=== PATIENT | female | born 1975 ===

== ENCOUNTER 2017-11-21 10:20 | Emergency (ER) | payer OTHER ==
[2017-11-21 10:47] VITALS: TEMP 98; O2SAT 98
[2017-11-21 11:56] VITALS: BP 146/71; PULSE 90; RESP 18
[2017-11-21] MEDS ORDERED: Albuterol-Ipratrop 3 mg / 0.5 (3 ml) UD INH STA (12:18)
--- NOTE | 2017-11-21 12:21 | ED PDOC ---
HPI: General Adult Time Seen by Provider: 11/21/17 12:15 Chief Complaint (Nursing): Flu-like Symptoms Chief Complaint (Provider): Cough, nasal congestion, sore throat History Per: Patient History/Exam Limitations: no limitations Onset/Duration Of Symptoms: Days (3) Additional Complaint(s): Patient is a 42 y/o female with no significant past medical history presenting to the emergency department for a cough, nasal congestion, and a sore throat ongoing for three days. Notes taking Tylenol with no significant relief. Denies vomiting, diarrhea, fever, chills, known sick contacts, or any other complaints. PCP: none provided Past Medical History Reviewed: Historical Data, Nursing Documentation, Vital Signs Vital Signs: Last Vital Signs Temp 98 F 11/21/17 11:53 Pulse 90 11/21/17 11:53 Resp 18 11/21/17 11:53 BP 146/71 11/21/17 11:53 Pulse Ox 98 11/22/17 00:37 - Medical History PMH: No Chronic Diseases - Family History Family History: States: No Known Family Hx - Social History Current smoker - smoking cessation education provided: No Ex-Smoker (has not smoked in the last 12 months): No Alcohol: None Drugs: Denies - Home Medications Home Medications: Ambulatory Orders Medication Instructions Recorded Albuterol HFA [Ventolin HFA 90 2 puff IH [id number] PRN #1 inhaler 11/21/17 mcg/actuation (8 g)] Prednisone [Deltasone] 2 tab PO DAILY #10 tablet 11/21/17 Promethazine/Codeine 5 ml PO Q12 PRN #100 ml 11/21/17 [Codeine/Promethazine 10 MG/5 Ml-6.25 MG/5 Ml] - Allergies Allergies/Adverse Reactions: Allergies Allergy/AdvReac Type Severity Reaction Status Date / Time No Known Allergies Allergy Verified 11/21/17 11:53 Review of Systems ROS Statement: Except As Marked, All Systems Reviewed And Found Negative Constitutional: Negative for: Fever, Chills ENT: Positive for: Nose Congestion, Throat Pain Respiratory: Positive for: Cough Gastrointestinal: Negative for: Vomiting, Diarrhea Physical Exam - Reviewed Nursing Documentation Reviewed: Yes Vital Signs Reviewed: Yes - Physical Exam Appears: Positive for: Non-toxic, No Acute Distress Head Exam: Positive for: ATRAUMATIC Skin: Positive for: Normal Color, Warm, Dry Eye Exam: Positive for: Normal appearance Neck: Positive for: Normal, Painless ROM, Supple Cardiovascular/Chest: Positive for: Regular Rate, Rhythm. Negative for: Murmur Respiratory: Positive for: Rhonchi (mild, right-sided), Other (bronchospasm cough noted). Negative for: Accessory Muscle Use, Respiratory Distress Extremity: Positive for: Normal ROM. Negative for: Pedal Edema Neurologic/Psych: Positive for: Alert, Oriented (x3) - ECG O2 Sat by Pulse Oximetry: 98 (RA) Pulse Ox Interpretation: Normal - Progress ED Course And Treament: patient improved in ED. Medical Decision Making Medical Decision Making: Time: 12:19 Initial impression: Flu-like symptoms Initial plan: Albuterol/Ipratropium 3 mL INH Peak flow assessment pre and post treatment Scribe Attestation: Documented by Amber Catherine, acting as a scribe for VANESSA Taylor. Provider Scribe Attestation: All medical record entries made by the Scribe were at my direction and personally dictated by me. I have reviewed the chart and agree that the record accurately reflects my personal performance of the history, physical exam, medical decision making, and the department course for this patient. I have also personally directed, reviewed, and agree with the discharge instructions and disposition. Disposition - Clinical Impression Clinical Impression: Viral illness - Patient ED Disposition Is Patient to be Admitted: No - Disposition Referrals: [facility] [Outside] Disposition: Routine/Home Disposition Time: 13:40 Condition: FAIR Prescriptions: Albuterol HFA [Ventolin HFA 90 mcg/actuation (8 g)] 2 puff IH [id number] PRN #1 inhaler PRN Reason: Cough Prednisone [Deltasone] 2 tab PO DAILY #10 tablet Promethazine/Codeine [Codeine/Promethazine 10 MG/5 Ml-6.25 MG/5 Ml] 5 ml PO Q12 PRN #100 ml PRN Reason: Cough Instructions: Acute Bronchitis (ED) Forms: [employer] Connect (Georgian), [facility] ED School/Work Excuse Print Language: UKRAINIAN
[2017-11-21] MEDS ORDERED: Albuterol-Ipratrop 3 mg / 0.5 (3 ml) UD ONE ×2 (12:33→12:34)
== END 2017-11-21 13:49 | disposition home or self-care (01) ==
LOC: H.ER 10:20
DX: B34.9 Viral infection, unspecified (principal)

== ENCOUNTER 2018-05-11 17:25 | Emergency (ER) | payer OTHER ==
[2018-05-11 17:43] VITALS: O2SAT 99
[2018-05-11] MEDS ORDERED: Sodium Chloride 0.9% 1,000 ML IV STA (18:35)
[2018-05-11] MEDS ORDERED: cefTRIAXone 1,000 MG in PED IV SYRINGE 1 SYR IVPB STA (19:35)
--- NOTE | 2018-05-11 19:36 | ED PDOC ---
HPI: Fever Fever Onset Was: 05/04/18 Symptoms Associated With Fever: denies: Vomiting, Diarrhea Additional Comments: 42 year old female presents to the ED with complaints of fever associated with chills, headache, and body ache, onset one week ago. Patient additionally reports of dysuria two weeks ago but states she does not have it now. Otherwise: (-) decreased alertness, (-) decreased activity, (-) SOB, (-) apparent pain, (-) decreased oral intake, (-) decreased urine output, ( -) rash, (-) vomiting, (-) diarrhea, (-) travel. Past Medical History Reviewed: Historical Data, Nursing Documentation, Vital Signs Vital Signs: Last Vital Signs Temp 100.8 F H 05/11/18 17:39 Pulse 110 H 05/11/18 17:39 Resp 22 05/11/18 17:39 BP 137/75 05/11/18 17:39 Pulse Ox 99 05/11/18 19:41 - Medical History PMH: No Chronic Diseases - Surgical History Surgical History: No Surg Hx - Family History Family History: States: Unknown Family Hx - Social History Current smoker - smoking cessation education provided: No Alcohol: None Drugs: Denies - Home Medications Home Medications: Ambulatory Orders Medication Instructions Recorded Albuterol HFA [Ventolin HFA 90 2 puff IH [id number] PRN #1 inhaler 11/21/17 mcg/actuation (8 g)] Prednisone [Deltasone] 2 tab PO DAILY #10 tablet 11/21/17 Promethazine/Codeine 5 ml PO Q12 PRN #100 ml 11/21/17 [Codeine/Promethazine 10 MG/5 Ml-6.25 MG/5 Ml] - Allergies Allergies/Adverse Reactions: Allergies Allergy/AdvReac Type Severity Reaction Status Date / Time No Known Allergies Allergy Verified 05/11/18 17:39 Review of Systems ROS Statement: Except As Marked, All Systems Reviewed And Found Negative Constitutional: Positive for: Fever, Chills, Other (myalgia) Neurological: Positive for: Headache Physical Exam - Reviewed Nursing Documentation Reviewed: Yes Vital Signs Reviewed: Yes - Physical Exam Comments: GENERAL APPEARANCE: Patient is awake, alert, not toxic appearing, in no acute distress. SKIN: Warm, dry; (-) cyanosis; (-) petechiae, (-) rash. EYES: (-) conjunctival pallor, (-) icterus. ENMT: TMs (-) erythema. Pharynx: (-) tonsillar erythema, (-) tonsillar exudate. Airway patent, (-) stridor. Mucous membranes moist. NECK: (-) stiffness, (-) meningismus, (-) lymphadenopathy. CHEST AND RESPIRATORY: (-) retractions, (-) rales, (-) rhonchi, (-) wheezes; breath equal bilaterally. HEART AND CARDIOVASCULAR: (-) irregularity; (-) murmur, (-) gallop. ABDOMEN AND GI: Soft; (-) tenderness; (-) distention, (-) guarding; (-) palpable mass. EXTREMITIES: (-) deformity; distal pulses are present. NEURO AND PSYCH: Mental status as above; interacts appropriately for age. Strength and tone good. - Laboratory Results Result Diagrams: 05/11/18 19:29 05/11/18 19:29 - ECG O2 Sat by Pulse Oximetry: 99 (RA) Pulse Ox Interpretation: Normal Medical Decision Making Medical Decision Making: Time: 1833 Plan: -- ED Urine -- ED Urine Dipstick -- CXR Two Views -- Tylenol 975 mg PO -- Zofran Inj 4 mg IVP -- Toradol 30 mg IVP -- IV Insertion Time: 1934 Plan: -- Urinalysis -- Influenza A B -- Finger Stick -- Urine Culture -- Blood Culture -- CBC with differentials -- Rocephin 1000 mg Ped IV Syringe 1 syr IVPB -- Venous Blood Gas UA (+) UTI. FS 244 Rocephin 1 g IV ordered. Labs reviewed Case endorsed to VANESSA Leonardo at 1999 pending re-evaluation, repeat FS and disposition. Scribe Attestation: Documented by Emily Linda, acting as a scribe for Bernadine Almazan PA-C. Provider Scribe Attestation: All medical record entries made by the Scribe were at my direction and personally dictated by me. I have reviewed the chart and agree that the record accurately reflects my personal performance of the history, physical exam, medical decision making, and the department course for this patient. I have also personally directed, reviewed, and agree with the discharge instructions and disposition. Disposition - Clinical Impression Clinical Impression: Fever, UTI (urinary tract infection), Diabetes - Patient ED Disposition Is Patient to be Admitted: Transfer of Care - Disposition Disposition: Transfer of Care Disposition Time: 20:00 Condition: STABLE Forms: [email or web address] Connect (Cambodian) - PA / CARE COORDINATION MANAGER / Resident Statement MD/DO has reviewed & agrees with the documentation as recorded.
[2018-05-11 19:39] LABS: BASO % 0.4 % (0.0-2.0); EOS % 0.1 % (0.0-4.0); HEMOGLOBIN 12.7 g/dL (12.0-16.0); LYMPH # 1.1 K/uL (1.0-4.3); LYMPH % 12.2 % (20.0-40.0); MEAN CELL VOLUME 85.6 fl (81.0-99.0); MEAN CORPUSCULAR HEMOGLOBIN 29.6 pg (27.0-31.0); MEAN CORPUSCULAR HGB CONC 34.6 g/dL (33.0-37.0); MONO # 0.7 K/uL (0.0-0.8); NEUT # 7.3 K/uL (1.8-7.0); NEUT % 79.3 % (50.0-75.0); RBC 4.3 Mil/uL (3.80-5.20); RED CELL DISTRIBUTION WIDTH 13.7 % (11.5-14.5); WHITE BLOOD COUNT 9.2 K/uL (4.8-10.8)
[2018-05-11 19:42] LABS: VENOUS BLOOD GAS BASE EXCESS 0.1 mmol/L (0.0-2.0); VENOUS BLOOD GAS PCO2 35 mmHg (40-60); VENOUS BLOOD GAS PO2 34 mm/Hg (30-55); VENOUS BLOOD PH 7.44 (7.32-7.43)
[2018-05-11 19:46] LABS: ALT/SGPT 57 U/L (9-52); AST/SGOT 65 U/L (14-36); BLOOD UREA NITROGEN 12 mg/dl (7-17); CALCIUM 8.8 mg/dL (8.4-10.2); GFR AFRICAN-AMERICAN > 60; GFR NON-AFRICAN AMERICAN > 60
[2018-05-11] MEDS ORDERED: cefTRIAXone (Rocephin) 1 gm Inj ONE (19:50)
[2018-05-11 20:08] LABS: SQUAMOUS EPITHIAL 4 /hpf (0-5); URINE BACTERIA RARE (<OCC); URINE BILIRUBIN NEGATIVE (NEGATIVE); URINE BLOOD MODERATE (NEGATIVE); URINE CLARITY CLOUDY (Clear); URINE COLOR YELLOW (YELLOW); URINE GLUCOSE (UA) >=500 mg/dL (Normal); URINE LEUKOCYTE ESTERASE MOD Leu/uL (Negative); URINE PROTEIN 30 mg/dL (NEGATIVE)
[2018-05-11 21:56] VITALS: PULSE 79; RESP 18; TEMP 98.6
[2018-05-11 22:16] VITALS: BP 101/65
--- NOTE | 2018-05-11 22:26 | ED PDOC ---
- Laboratory Results Result Diagrams: 05/11/18 19:29 05/11/18 19:29 - ECG O2 Sat by Pulse Oximetry: 99 - Progress ED Course And Treament: Case endorsed to software writer from [employer] pending re-eval On re-eval patient states she is feeling better. Patient/family educated on findings, discharged with rx Metformin, Macrobid, Ibuprofen Advised fluids. Diet/lifestyle modification Follow up PMD 2-3 days. Return precautions given Disposition - Clinical Impression Clinical Impression: Fever, UTI (urinary tract infection), Diabetes - POA Present On Arrival: None - Disposition Referrals: [facility] [Outside] Disposition: Routine/Home Disposition Time: 22:27 Condition: IMPROVED Prescriptions: Ibuprofen [Motrin Tab] 1 tab PO Q6 PRN #20 tab PRN Reason: Fever >100.4 F Metformin HCl [Glucophage] 500 mg PO BID #30 tab Nitrofurantoin Macrocrystals [Macrobid] 100 mg PO BID #14 cap Instructions: Urinary Tract Infections in Adults, Diabetes and Diet, Hyperglycemia, Adult Print Language: ROMANSH
--- NOTE | 2018-05-12 07:34 | RAD ---
HISTORY: fever COMPARISON: No prior. TECHNIQUE: Chest PA and lateral FINDINGS: LUNGS: Borderline patchy density left base may reflect atelectasis or early infiltrate. Remaining lung hightower are otherwise clear bilaterally. PLEURA: No significant pleural effusion identified. No pneumothorax apparent. CARDIOVASCULAR: Normal. OSSEOUS STRUCTURES: No significant abnormalities. VISUALIZED UPPER ABDOMEN: Normal. OTHER FINDINGS: None. IMPRESSION: Borderline patchy airspace disease left base. Otherwise unremarkable chest radiographs.
== END 2018-05-11 22:55 | disposition home or self-care (01) ==
LOC: H.ER 17:25
DX: N39.0 Urinary tract infection, site not specified (principal); E11.9 Type 2 diabetes mellitus without complications
CPT/HCPCS: 71046; 80053; 81003; 81025; 82803; 82948; 85025; 87040; 87086; 87181; 87804; 96365; 96375; 99285; J0696; J1885; J2405; J7030

== ENCOUNTER 2018-07-02 22:26 | Emergency (ER) | payer OTHER ==
[2018-07-02 22:30] VITALS: BP 136/86; PULSE 85; RESP 16; TEMP 98.6; O2SAT 99
[2018-07-02] MEDS ORDERED: Bacitracin 500 Units/gm Oint Foilpak UD TOP STA (22:35)
[2018-07-02] MEDS ORDERED: Tdap Vaccine 0.5 ml Vial (10-64 yrs) IM ONE ×2 (22:35→23:05)
--- NOTE | 2018-07-02 22:46 | ED PDOC ---
HPI: General Adult Time Seen by Provider: 07/02/18 22:27 Chief Complaint (Nursing): ENT Problem History Per: Patient, Family (Deanna daughter who served as photostatic copy maker; pt. prefers her daughter over video photostatic copy maker) Additional Complaint(s): Pt. states earlier today she was walking her dogs when she tripped over an uneven curb falling forward striking her face and her R knee onto the ground. As per her daughter who witnessed the event pt. did not lose consciousness. Has been bleeding intermittently from the R nostril. Denies LOC, extremity pain including R knee, chest pain, abd pain, N/V, neck pain, anticoagulant use. Past Medical History Reviewed: Historical Data, Nursing Documentation, Vital Signs Vital Signs: Last Vital Signs Temp 98.6 F 07/02/18 22:28 Pulse 85 07/02/18 22:28 Resp 16 07/02/18 22:28 BP 136/86 07/02/18 22:28 Pulse Ox 99 07/02/18 22:54 - Medical History PMH: Diabetes Denies: Chronic Kidney Disease - Surgical History Surgical History: No Surg Hx - Family History Family History: States: No Known Family Hx - Home Medications Home Medications: Ambulatory Orders Medication Instructions Recorded Albuterol HFA [Ventolin HFA 90 2 puff IH [id number] PRN #1 inhaler 11/21/17 mcg/actuation (8 g)] Prednisone [Deltasone] 2 tab PO DAILY #10 tablet 11/21/17 Promethazine/Codeine 5 ml PO Q12 PRN #100 ml 11/21/17 [Codeine/Promethazine 10 MG/5 Ml-6.25 MG/5 Ml] Ibuprofen [Motrin Tab] 1 tab PO Q6 PRN #20 tab 05/11/18 Metformin HCl [Glucophage] 500 mg PO BID #30 tab 05/11/18 Nitrofurantoin Macrocrystals 100 mg PO BID #14 cap 05/11/18 [Macrobid] Amoxicillin/Clavulanate [Augmentin 1 tab PO BID #20 tab 07/02/18 500 MG-125 MG] Pseudoephedrine HCl [Sudafed] 1 - 2 mg PO Q8 PRN #10 tablet 07/02/18 - Allergies Allergies/Adverse Reactions: Allergies Allergy/AdvReac Type Severity Reaction Status Date / Time No Known Allergies Allergy Verified 05/11/18 17:39 Review of Systems ROS Statement: Except As Marked, All Systems Reviewed And Found Negative Physical Exam - Physical Exam Appears: Positive for: Well, Non-toxic, No Acute Distress Head Exam: Negative for: ATRAUMATIC, NORMAL INSPECTION, NORMOCEPHALIC Skin: Positive for: Normal Color, Warm. Negative for: Rash Eye Exam: Positive for: Normal appearance, EOMI, PERRL, Other (no hyphema). Negative for: Periorbital swelling, Periorbital tenderness ENT: Positive for: TM Is/Are (no hemotympanum b/l), Other (no bleeding in pharynx; moderate tenderness and swelling to the nose with deformity and superficial abrasions to nasal bridge; blood noted in R nostril; no septal hematoma b/l; no active bleeding to both nostrils). Negative for: Pharyngeal Erythema, Tonsillar Exudate, Tonsillar Swelling Neck: Positive for: Normal, Painless ROM Cardiovascular/Chest: Positive for: Chest Non Tender Pulses-Dorsalis Pedis (L): 2+ Pulses-Dorsalis Pedis (R): 2+ Gastrointestinal/Abdominal: Positive for: Normal Exam, Soft. Negative for: Tenderness Back: Positive for: Normal Inspection. Negative for: L CVA Tenderness, R CVA Tenderness, Vertebral Tenderness (including cervical spine) Extremity: Positive for: Other (R knee with superficial abrasions without tenderness, swelling, or deformity; FROM actively of R knee) Neurologic/Psych: Positive for: Alert, Oriented (x3), Gait (steady, unassisted) . Negative for: Aphasia, Facial Droop - ECG O2 Sat by Pulse Oximetry: 99 - Progress ED Course And Treament: CT head, maxillofacial w/o contrast, Tylenol 975mg PO, tetanus prophylaxis ordered. Abrasions cleansed and dressed by RN. Bacitracin ointment applied to abrasions by RN. CT head w/o contrast: negative CT maxillofacial w/o contrast: Acute displaced comminuted fracture of the right nasal bone with overlying soft tissue swelling. Nasal septum is kinked and rightward deviated, likely congenital or due to old chronic fracture injury. This finding is probably unlikely to represent an acute fracture injury; however, correlation with prior imaging, which may be available on-site or from outside institutions, would be helpful to assess for stability, if also clinically indicated. Trace blood and frothy secretions at the right nasal cavity and nasopharyngeal lumen, likely from the right nasal bone fracture Pt. and daughter informed of results. Advised to f/u with [facility] or Dr. Byrd (ENT ) for further evaluation. Nasal bleeding stopped spontaneously while in ED. Disposition - Clinical Impression Clinical Impression: Head injury, Nasal fracture - Patient ED Disposition Is Patient to be Admitted: No - Disposition Referrals: [facility] [Outside] Cj Byrd MD [Staff Provider] - [facility] [Outside] Disposition: Routine/Home Disposition Time: 23:30 Condition: STABLE Additional Instructions: FOLLOW UP EAR NOSE AND THROAT DOCTOR OR GO TO [facility] WITHOUT FAIL FOR FURTHER EVALUATION WITHOUT FAIL NEVA LEI, thank you for letting us take care of you today. Your provider was Yuriy Miller MD and you were treated for FALL,NOSE INJURY. The emergency medical care you received today was directed at your acute symptoms. If you were prescribed any medication, please fill it and take as directed. It may take several days for your symptoms to resolve. Return to the Emergency Department if your symptoms worsen, do not improve, or if you have any other problems. Please contact your doctor or call one of the physicians/clinics you have been referred to that are listed on the Patient Visit Information form that is included in your discharge packet. Bring any paperwork you were given at discharge with you along with any medications you are taking to your follow up visit. Our treatment cannot replace ongoing medical care by a primary care provider outside of the emergency department. Thank you for allowing the [facility] team to be part of your care today. If you had an X-Ray or CT scan: A Radiologist will review the ED reading if any change in treatment is needed we will contact you. If you had a blood, urine, or wound culture: It will take several days for the results, if any change in treatment is needed we will contact you. If you had an STI test: It will take 48 hours for the results. Please call after 1 week if you have not heard back. Prescriptions: Amoxicillin/Clavulanate [Augmentin 500 MG-125 MG] 1 tab PO BID #20 tab Pseudoephedrine HCl [Sudafed] 1 - 2 mg PO Q8 PRN #10 tablet PRN Reason: Nasal Congestion Instructions: Minor Head Injury (DC), Nose Fracture Forms: [employer] (Vietnamese) Print Language: [email or web address]
[2018-07-02] MEDS ORDERED: Bacitracin 500 Units/gm Oint Foilpak UD ONE (23:05)
--- NOTE | 2018-07-03 10:20 | CT ---
Date of service: 07/02/2018 PROCEDURE: CT HEAD WITHOUT CONTRAST. HISTORY: trauma COMPARISON: None available. TECHNIQUE: Axial computed tomography images were obtained through the head/brain without intravenous contrast. Radiation dose: Total exam DLP = 776.09 mGy-cm. This CT exam was performed using one or more of the following dose reduction techniques: Automated exposure control, adjustment of the mA and/or kV according to patient size, and/or use of iterative reconstruction technique. FINDINGS: HEMORRHAGE: No intracranial hemorrhage. BRAIN: Normal stearns-white matter differentiation and density are appreciated throughout the cerebrum and cerebellum with the brainstem appearing unremarkable as well. There is no mass effect. There is no suspicious extra-axial fluid collection and the midline brain anatomy appears diffusely unremarkable. VENTRICLES: Unremarkable. No hydrocephalus. CALVARIUM: No destructive bony lesion or displaced fracture identified including through the skullbase. PARANASAL SINUSES: Unremarkable as visualized. No significant inflammatory changes. MASTOID AIR CELLS: Unremarkable as visualized. No inflammatory changes. OTHER FINDINGS: None. IMPRESSION: Unremarkable noncontrast head CT. Concordant preliminary report from [facility], 07/02/2018.
--- NOTE | 2018-07-03 10:28 | CT ---
Date of service: 07/02/2018 PROCEDURE: CT MAXILLOFACIAL BONES WITHOUT CONTRAST HISTORY: trauma COMPARISON: None available. TECHNIQUE: Contiguous axial CT images of the maxillofacial bones were obtained. Coronal and sagittal reformats were generated. Radiation dose: Total exam DLP = 730.88 mGy-cm. This CT exam was performed using one or more of the following dose reduction techniques: Automated exposure control, adjustment of the mA and/or kV according to patient size, and/or use of iterative reconstruction technique. FINDINGS: NASAL BONES: Mildly comminuted impacted fracture of the right frontal nasal bone component is appreciated with borderline diffuse nasal soft tissue edema evident. There is questionable diastases of the left nasofrontal suture. The maxillary component of the nasal bones appears intact. Note is made of rightward bony nasal septal deviation likely on a chronic basis as no fracture of the bony septum is identified. ORBITS: Unremarkable. PARANASAL SINUSES/ MASTOIDS: Limited inferior posterior right ethmoid sinusitis as well as of the right maxillary sinus with remaining perineal sinuses clear. MAXILLA: Unremarkable. MANDIBLE/ TEMPOROMANDIBULAR JOINTS: Unremarkable. SKULL BASE: Unremarkable. TEMPORAL BONES: Middle ears and mastoid grossly unremarkable. OTHER FINDINGS: None. IMPRESSION: Minimally comminuted right nasal bone fractures identified with mild diffuse nasal soft tissue edema present. No additional fracture throughout the facial bones as discussed above. Limited right ethmoid and maxillary sinus disease appreciated. Concordant preliminary report from [facility], 07/02/2018.
== END 2018-07-03 00:06 | disposition home or self-care (01) ==
LOC: H.ER 22:26
DX: S02.2XXA Fracture of nasal bones, initial encounter for closed fracture (principal); S09.90XA Unspecified injury of head, initial encounter; E11.9 Type 2 diabetes mellitus without complications; J32.0 Chronic maxillary sinusitis; W01.0XXA Fall on same level from slipping, tripping and stumbling without subsequent striking against object, initial encounter

== ENCOUNTER 2018-08-18 23:15 | Emergency (ER) | payer SELFPAY ==
[2018-08-19] MEDS ORDERED: Sodium Chloride 0.9% 1,000 ML IV STA (00:26)
[2018-08-19 01:15] LABS: VENOUS BLOOD GAS BASE EXCESS -0.4 mmol/L (0.0-2.0); VENOUS BLOOD GAS PCO2 33 mmHg (40-60); VENOUS BLOOD GAS PO2 58 mm/Hg (30-55); VENOUS BLOOD PH 7.45 (7.32-7.43)
[2018-08-19 01:25] LABS: BASO % 0.3 % (0.0-2.0); BLOOD UREA NITROGEN 10 mg/dl (7-17); EOS % 0.2 % (0.0-4.0); GFR NON-AFRICAN AMERICAN > 60; HEMOGLOBIN 12.7 g/dL (12.0-16.0); LYMPH # 1.6 K/uL (1.0-4.3); LYMPH % 14.1 % (20.0-40.0); MEAN CELL VOLUME 86.3 fl (81.0-99.0); MEAN CORPUSCULAR HEMOGLOBIN 28.8 pg (27.0-31.0); MEAN CORPUSCULAR HGB CONC 33.4 g/dL (33.0-37.0); MEAN PLATELET VOLUME 8.6 fl (7.2-11.7); MONO # 1.2 K/uL (0.0-0.8); MONO % 10.3 % (0.0-10.0); NEUT # 8.4 K/uL (1.8-7.0); NEUT % 75.1 % (50.0-75.0); RBC 4.41 Mil/uL (3.80-5.20); RED CELL DISTRIBUTION WIDTH 13.5 % (11.5-14.5); WHITE BLOOD COUNT 11.3 K/uL (4.8-10.8)
--- NOTE | 2018-08-19 01:30 | ED PDOC ---
HPI: General Adult Time Seen by Provider: 08/18/18 23:42 Chief Complaint (Nursing): Abdominal Pain Chief Complaint (Provider): fever, chills and body aches History Per: Patient History/Exam Limitations: no limitations Onset/Duration Of Symptoms: Days (x1 month), Intermittent Episodes Current Symptoms Are (Timing): Still Present Additional Complaint(s): Suzanne Valles is a 42 year old female, with a past medical history of diabetes, who presents to the emergency department for evaluation of an on and off fever, body aches and chills onset for the past month. Patient also reports having some nausea and a throbbing headache today. Patient felt more weak than normal prompting ED visit. She did not take medications prior to arrival. She does report some vaginal itching but denies any vomiting, cough, neck stiffness, runny nose, sore throat or urinary symptoms. No further medical complaints. PMD: None provided. Past Medical History Reviewed: Historical Data, Nursing Documentation, Vital Signs Vital Signs: Last Vital Signs Temp 103 F H 08/19/18 00:45 Pulse 123 H 08/18/18 23:22 Resp 16 08/18/18 23:22 BP 139/89 08/18/18 23:22 Pulse Ox 97 08/18/18 23:22 - Medical History PMH: Diabetes Denies: Chronic Kidney Disease - Surgical History Surgical History: No Surg Hx - Family History Family History: States: Unknown Family Hx - Home Medications Home Medications: Ambulatory Orders Medication Instructions Recorded Albuterol HFA [Ventolin HFA 90 2 puff IH [id number] PRN #1 inhaler 11/21/17 mcg/actuation (8 g)] Prednisone [Deltasone] 2 tab PO DAILY #10 tablet 11/21/17 Promethazine/Codeine 5 ml PO Q12 PRN #100 ml 11/21/17 [Codeine/Promethazine 10 MG/5 Ml-6.25 MG/5 Ml] Ibuprofen [Motrin Tab] 1 tab PO Q6 PRN #20 tab 05/11/18 Metformin HCl [Glucophage] 500 mg PO BID #30 tab 05/11/18 Nitrofurantoin Macrocrystals 100 mg PO BID #14 cap 05/11/18 [Macrobid] Amoxicillin/Clavulanate [Augmentin 1 tab PO BID #20 tab 07/02/18 500 MG-125 MG] Pseudoephedrine HCl [Sudafed] 1 - 2 mg PO Q8 PRN #10 tablet 07/02/18 Ibuprofen [Motrin Tab] 600 mg PO Q6 #30 tab 08/19/18 - Allergies Allergies/Adverse Reactions: Allergies Allergy/AdvReac Type Severity Reaction Status Date / Time No Known Allergies Allergy Verified 05/11/18 17:39 Review of Systems ROS Statement: Except As Marked, All Systems Reviewed And Found Negative Constitutional: Positive for: Fever, Chills, Other (body aches) ENT: Negative for: Nose Discharge (runny nose), Throat Pain Respiratory: Negative for: Cough Gastrointestinal: Positive for: Nausea. Negative for: Vomiting Genitourinary Female: Positive for: Other (vaginal itching). Negative for: Dysuria, Frequency, Hematuria Physical Exam - Reviewed Nursing Documentation Reviewed: Yes Vital Signs Reviewed: Yes - Physical Exam Appears: Positive for: No Acute Distress Head Exam: Positive for: ATRAUMATIC, NORMAL INSPECTION, NORMOCEPHALIC Skin: Positive for: Normal Color, Warm, Dry Eye Exam: Positive for: Normal appearance, EOMI, PERRL ENT: Positive for: Normal ENT Inspection Neck: Positive for: Normal (No meningeal signs), Painless ROM, Supple Cardiovascular/Chest: Positive for: Tachycardia (regular rhythm) Respiratory: Positive for: Normal Breath Sounds. Negative for: Respiratory Distress Gastrointestinal/Abdominal: Positive for: Normal Exam, Soft. Negative for: Tenderness Back: Positive for: Normal Inspection. Negative for: L CVA Tenderness, R CVA Tenderness, Vertebral Tenderness Extremity: Positive for: Normal ROM (upper and lower extremities). Negative for: Deformity, Swelling Neurologic/Psych: Positive for: Alert, Oriented, Gait (steady) - Laboratory Results Result Diagrams: 08/19/18 01:08 08/19/18 01:08 - ECG O2 Sat by Pulse Oximetry: 97 (RA) Pulse Ox Interpretation: Normal Medical Decision Making Medical Decision Making: Time: 23:42 A/P: 42 y/o female presenting with fever, body aches, and chills. Otherwise patient is well appearing. Symptoms most likely viral. Unlikely [employer] infection or other case of bacterial infection. Initial Plan: --VBG --BMP --Urine --Urine dipstick --CBC w/ differential --Sodium Chloride 1,000 ml IV 1,000 mls/hr --Toradol 30 mg IVP --Tylenol 325mg tab 650 mg PO --Influenza A B --Urinalysis --Reevaluation 03:15 Upon provider reevaluation patient is feeling better, is medically stable, and requires no further treatment in the ED at this time. Patient will be discharged home. Counseling was provided and all questions were answered regarding diagnosis*. There is agreement to discharge plan. Return if symptoms persist or worsen. Scribe Attestation: Documented by Ralph Brito, acting as a scribe for Isak Pinzon MD. Provider Scribe Attestation: All medical record entries made by the Scribe were at my direction and personally dictated by me. I have reviewed the chart and agree that the record accurately reflects my personal performance of the history, physical exam, medical decision making, and the department course for this patient. I have also personally directed, reviewed, and agree with the discharge instructions and disposition. Disposition - Clinical Impression Clinical Impression: Viral syndrome - Disposition Referrals: [facility] [place] [Outside] Disposition: Routine/Home Disposition Time: 03:15 Condition: STABLE Prescriptions: Ibuprofen [Motrin Tab] 600 mg PO Q6 #30 tab Instructions: Viral Syndrome (DC) Forms: [employer] (Gibraltarian) Print Language: GREENLANDIC
[2018-08-19 01:31] LABS: SQUAMOUS EPITHIAL 1 /hpf (0-5); URINE BACTERIA RARE (<OCC); URINE BILIRUBIN NEGATIVE (NEGATIVE); URINE BLOOD LARGE (NEGATIVE); URINE CLARITY SLIGHTY-CLOUDY (Clear); URINE COLOR YELLOW (YELLOW); URINE GLUCOSE (UA) >=500 mg/dL (Normal); URINE LEUKOCYTE ESTERASE SMALL Leu/uL (Negative); URINE PROTEIN 30 mg/dL (NEGATIVE); URINE UROBILINOGEN 0.2-1.0 mg/dL (0.2-1.0)
[2018-08-19 02:07] VITALS: RESP 18
[2018-08-19 03:38] VITALS: BP 105/47; PULSE 77; TEMP 98.5
[2018-08-19 05:54] VITALS: O2SAT 97
--- NOTE | 2018-08-19 17:20 | RAD ---
Date of service: 08/19/2018 HISTORY: fever, chlls COMPARISON: 04/2018 TECHNIQUE: Chest PA and lateral FINDINGS: LUNGS: No active pulmonary disease. There is interval clearing of the lung bases when compared to the prior study. PLEURA: No significant pleural effusion identified. No pneumothorax apparent. CARDIOVASCULAR: Normal. OSSEOUS STRUCTURES: No significant abnormalities. VISUALIZED UPPER ABDOMEN: Normal. OTHER FINDINGS: None. IMPRESSION: No active disease.
== END 2018-08-19 03:37 | disposition home or self-care (01) ==
LOC: H.ER 23:15
DX: J10.1 Influenza due to other identified influenza virus with other respiratory manifestations (principal); E11.9 Type 2 diabetes mellitus without complications
CPT/HCPCS: 71046; 80048; 81003; 81025; 82803; 85025; 87804; 96361; 96374; 99284; J1885; J7030

== ENCOUNTER 2019-02-27 10:24 | Emergency (ER) | payer OTHER ==
[2019-02-27 10:32] VITALS: BMI 32.3
[2019-02-27 10:33] VITALS: BP 134/77; PULSE 69; RESP 16; TEMP 98.1; O2SAT 99
--- NOTE | 2019-02-27 11:37 | ED PDOC ---
HPI: Abdomen Time Seen by Provider: 02/27/19 11:07 Chief Complaint (Nursing): Female Genitourinary Chief Complaint (Provider): Abdominal Pain and Dysuria History Per: Patient History/Exam Limitations: no limitations Onset/Duration Of Symptoms: Days (one week ) Current Symptoms Are (Timing): Still Present Additional Complaint(s): 43 year old female with type II diabetes presents to the ED for an evaluation of lower abdominal pain and dysuria onset for one week. Patient states she has ran out of Metformin for 2 weeks and she has not obtained a prescription for refill. Otherwise, she denies fever, vomiting or nausea. PMD: no family provider Abnormal Vaginal Bleeding: No Past Medical History Reviewed: Historical Data, Nursing Documentation, Vital Signs Vital Signs: Last Vital Signs Temp 98.1 F 02/27/19 10:32 Pulse 69 02/27/19 10:32 Resp 16 02/27/19 10:32 BP 134/77 02/27/19 10:32 Pulse Ox 99 02/27/19 10:32 - Medical History PMH: Diabetes Denies: Chronic Kidney Disease - Family History Family History: States: Unknown Family Hx - Home Medications Home Medications: Ambulatory Orders Medication Instructions Recorded Albuterol HFA [Ventolin HFA 90 2 puff IH [id number] PRN #1 inhaler 11/21/17 mcg/actuation (8 g)] Prednisone [Deltasone] 2 tab PO DAILY #10 tablet 11/21/17 Promethazine/Codeine 5 ml PO Q12 PRN #100 ml 11/21/17 [Codeine/Promethazine 10 MG/5 Ml-6.25 MG/5 Ml] Ibuprofen [Motrin Tab] 1 tab PO Q6 PRN #20 tab 05/11/18 Metformin HCl [Glucophage] 500 mg PO BID #30 tab 05/11/18 Nitrofurantoin Macrocrystals 100 mg PO BID #14 cap 05/11/18 [Macrobid] Amoxicillin/Clavulanate [Augmentin 1 tab PO BID #20 tab 07/02/18 500 MG-125 MG] Pseudoephedrine HCl [Sudafed] 1 - 2 mg PO Q8 PRN #10 tablet 07/02/18 Ibuprofen [Motrin Tab] 600 mg PO Q6 #30 tab 08/19/18 Nitrofurantoin Macrocrystals 100 mg PO BID #10 cap 02/27/19 [Macrobid] metFORMIN [glucOPHAGE] 1,000 mg PO BID #120 tab 02/27/19 - Allergies Allergies/Adverse Reactions: Allergies Allergy/AdvReac Type Severity Reaction Status Date / Time No Known Allergies Allergy Verified 05/11/18 17:39 Review of Systems ROS Statement: Except As Marked, All Systems Reviewed And Found Negative Constitutional: Negative for: Fever Gastrointestinal: Positive for: Abdominal Pain. Negative for: Nausea, Vomiting Genitourinary Female: Positive for: Dysuria Musculoskeletal: Negative for: Back Pain Physical Exam - Reviewed Nursing Documentation Reviewed: Yes Vital Signs Reviewed: Yes - Physical Exam Appears: Positive for: Well, Non-toxic, No Acute Distress Head Exam: Positive for: ATRAUMATIC, NORMAL INSPECTION, NORMOCEPHALIC Skin: Positive for: Normal Color, Warm, Dry. Negative for: Rash Eye Exam: Positive for: EOMI, Normal appearance, PERRL ENT: Positive for: Normal ENT Inspection Neck: Positive for: Normal, Painless ROM Cardiovascular/Chest: Positive for: Regular Rate, Rhythm. Negative for: Murmur Respiratory: Positive for: Normal Breath Sounds. Negative for: Respiratory Distress Gastrointestinal/Abdominal: Positive for: Soft, Tenderness (suprapubic) Back: Positive for: Normal Inspection. Negative for: L CVA Tenderness, R CVA Tenderness Extremity: Positive for: Normal ROM Neurological/Psych: Positive for: Awake, Alert, Normal Tone, Oriented (x3) - Laboratory Results Urine dip results: Positive for: Leukocyte Esterase (high) - ECG O2 Sat by Pulse Oximetry: 99 (RA) Pulse Ox Interpretation: Normal Medical Decision Making Medical Decision Making: Time: 1107 Impression: UTI secondary due to hyperglycemia Plan: Patient provided antibiotics for UTI and provided referral for Metformin Upon provider reevaluation patient is feeling better, is medically stable, and requires no further treatment in the ED at this time. Patient will be discharged home. Counseling was provided and all questions were answered regarding diagnosis. There is agreement to discharge plan. Return if symptoms persist or worsen. Scribe Attestation: Documented by Rod Diaz, acting as a scribe for Teressa Schuler MD Provider Scribe Attestation: All medical record entries made by the Scribe were at my direction and personally dictated by me. I have reviewed the chart and agree that the record accurately reflects my personal performance of the history, physical exam, medical decision making, and the department course for this patient. I have also personally directed, reviewed, and agree with the discharge instructions and disposition. Disposition - Clinical Impression Clinical Impression: UTI (urinary tract infection), Hyperglycemia due to type 2 diabetes mellitus - Disposition Referrals: [facility] [place] [Outside] FAMILY PROVIDER,NO [Primary Care Provider] - Disposition Time: 11:07 Condition: IMPROVED Prescriptions: metFORMIN [glucOPHAGE] 1,000 mg PO BID #120 tab Nitrofurantoin Macrocrystals [Macrobid] 100 mg PO BID #10 cap Instructions: Urinary Tract Infections in Adults Forms: [employer] (Macanese)
== END 2019-02-27 11:52 | disposition home or self-care (01) ==
LOC: H.ER 10:24 → SUPCPDRO 10:24 → H.ER 11:52
DX: N39.0 Urinary tract infection, site not specified (principal); E11.65 Type 2 diabetes mellitus with hyperglycemia; Z79.84 Long term (current) use of oral hypoglycemic drugs